=== PATIENT | male | born 1985 | race Two or more races ===

== ENCOUNTER 2024-11-25 20:16 | Emergency (ER) | payer SELFPAY ==
[2024-11-25 20:29] VITALS: BP 146/99; PULSE 66; RESP 20; TEMP 36.6; O2SAT 97; BMI 32.3
[2024-11-25 20:40] VITALS: BP 154/97; PULSE 80; RESP 18; TEMP 36.6; O2SAT 100
--- NOTE | 2024-11-25 20:44 | ED_ITS ---
Discharge Plan Disposition Patient Disposition: Home, Self-Care Referrals Follow up/Referrals: Provider,Referral, MD [Primary Care Provider] - See instructions Activity Restrictions/Add. Instructions Additional Instructions/Restrictions: You have a scratch over the cornea of your eye. Please apply 0.5 cm of the ointment in your eye as I directed by pulling out your eyelid escorting the ointment in and then blinking multiple times to cover your eye with the antibiotic ointment 4 times a day for 5 days. When you put the ointment in your eye it will make your vision blurry, this is expected. If your eye starts draining pus or it becomes red and swollen around your eye please come back here for continued evaluation or go to an eye doctor. Do not submerge your head in water and open your eyes while that is healing, should take a total of 10 to 14 days to heal completely. It is okay to shower. It is okay to continue to work but please ensure that you use appropriate eye protection. Clinical Impressions Clinical Impression: Corneal abrasion Discharge ED Provider: Jose L Frederick General Adult HPI General Chief complaint: Eye Problems Stated complaint: FB in LT eye, poss wood Time Seen by Provider: 11/25/24 20:18 Mode of Arrival: Ambulatory Source of Information: Patient Description of Symptoms (Recalled from ER Triage Doc. by RN): PT HERE WITH C/O POSSIBLE WOOD SHAVINGS IN LEFT EYE THAT OCCURED AROUND 10 AM TODAY. [place]OSOV[place] SPEAKING PT, VIDEO INT. USED DURING TRIAGE. PT DENIES ANY VISUAL DEFICITS. History of Present Illness HPI narrative: Patient is a 39-year-old Thai-speaking individual presents emergency department for evaluation of ocular trauma. Patient was sawing wood with a chainsaw wearing glasses when a rogelio of wood came up and hit his eye at approximately 10 AM this morning. Since then he has been able to see and his vision is intact however he does have persistent irritation that is causing him significant discomfort and he presents here for continued evaluation. Tetanus is up-to-date. No other trauma. Please note that above description of symptoms, in this electronic medical record under categorization of recalled from ER triage doctor by RN are reflective of an initial nursing assessment, however, is not reflective of my full history and physical exam that was personally taken and clarified. Consequentially, this preceding description of symptoms, which may include the patient's categorized chief complaint in the EMR, do not reflect my personal clinical impression, and the ultimate description of history of present illness and patient stated complaints should be deferred to this section of the note. Unless stated otherwise or congruent with this section of the note, additional signs, symptoms, or incongruence should be interpreted as inaccurate with my clinical impression. Related Data Allergies Allergy/AdvReac Type Severity Reaction Status Date / Time No Known Allergies Allergy Verified 11/25/24 20:33 [facility] Disclaimer: The information contained in this section may have been updated after the patient was seen, as this information can be updated by other users. Medical History (Updated 11/25/24 @ 20:38 by Jose L Frederick MD) No significant past medical history Social History Smoking Status: Never smoker alcohol intake: never current occupational status: employed Travel in the last 8 weeks: None ROS Obtained: Yes Systems reviewed as appropriate & no additional complaints except as documented Physical Exam General General appearance: alert and in no apparent distress Head Head exam: atraumatic and normocephalic Eye Eye exam: Present EOMI, conjunctival redness and other (Conjunctival injection on the left, no exophthalmos, no periorbital edema or erythema) ENT ENT exam: Present mucous membranes moist Neck Neck exam: Present normal inspection Chest Chest inspection: Present normal inspection and symmetric chest wall rise Respiratory Respiratory exam: Absent respiratory distress Cardiovascular Cardiovascular exam: Present regular rate Extremities Exam Extremities exam: Present normal inspection Neurological Exam Neurological exam: Present alert Psychiatric Psychiatric exam: Present normal affect Skin Skin exam: Present warm and dry Medical Decision Making Medical Records Screening: Per USPSTF and CDC recommendations, given the prevalence of disease in our region, it is our hospital?s policy to screen for HIV and viral Hepatitis for all patients aged 18 and over and those with ongoing risk factors. [place] Inquiry Pt receiving controlled substance: No Vital Signs: 11/25/24 20:29 Temperature 97.9 F Temperature Source Tympanic Pulse Rate [Apical] 66 Respiratory Rate 20 Blood Pressure [Right Arm] 146/99 H Blood Pressure Mean [Right Arm] 114 02 Sat by Pulse Oximetry 97 Oxygen Delivery Method Room Air Medical Decision Narrative: In summary patient is a 39-year-old male past medical history described above presents emergency department for evaluation of ocular trauma. History is facilitated by full time staff interpreter. Patient's tetanus is up-to-date. Patient underwent fluorescein exam and has large corneal abrasion over his superior cornea. No evidence of corneal laceration, no retained foreign body. Based on history and trauma no concern for orbital floor fracture therefore intracranial imaging was considered but will be deferred. Given this patient will be discharged with erythromycin ointment and was given multiple return precautions and verbalized understanding. Procedure: Procedure performed ocular exam. Topical tetracaine was applied with good effect, partial anesthesia achieved. Fluorescein was instilled into the eye and there is a 3 mm x 4 mm area of uptake over the superior cornea not over the direct field of vision. There is conjunctival injection, lid eversion no retained foreign bodies. No other corneal abrasions. Rodrigo negative. Critical Care Critical Care Time Critical Care Time: No
[2024-11-25] MEDS: TETRACAINE 0.5% OPTH SOL 15ML OP (20:46)
== END 2024-11-25 20:57 | disposition home or self-care (01) ==
PROVIDERS: Emergency Provider Emergency Medicine
DX: S05.02XA Injury of conjunctiva and corneal abrasion without foreign body, left eye, initial encounter (principal); X58.XXXA Exposure to other specified factors, initial encounter
CPT/HCPCS: 99282